=== PATIENT | female | born 1950 | race Caucasian/White ===

== ENCOUNTER 2016-11-02 09:31 | Outpatient (CLI) | payer OTHER, MEDICARE | END 2016-11-02 18:37 | disposition home or self-care (01) | LOC: SMA 09:31 | PROVIDERS: ATTEND Specialist | DX: Z12.31 Encounter for screening mammogram for malignant neoplasm of breast (principal) | CPT/HCPCS: G0202 ==

== ENCOUNTER 2017-12-06 08:46 | Outpatient (CLI) | payer OTHER, MEDICARE | END 2017-12-06 20:54 | disposition home or self-care (01) | LOC: SMA 08:46 | DX: Z12.31 Encounter for screening mammogram for malignant neoplasm of breast (principal) | CPT/HCPCS: 77067 ==

== ENCOUNTER 2020-01-11 10:35 | Outpatient (CLI) | payer OTHER, MEDICARE | END 2020-01-11 21:24 | disposition home or self-care (01) | LOC: SMA 10:35 | PROVIDERS: ATTEND Specialist | DX: Z12.31 Encounter for screening mammogram for malignant neoplasm of breast (principal) | CPT/HCPCS: 77067 ==